=== PATIENT | male | born 1960 | race Caucasian/White ===

== ENCOUNTER → 2020-09-21 13:33 | Outpatient (BNVA) | payer OTHER, SELFPAY | PROVIDERS: PCP Nurse Practitioner; Referring Provider Nurse Practitioner; Visit Provider Specialist | DX: S52.91XA Unspecified fracture of right forearm, initial encounter for closed fracture (principal) | CPT/HCPCS: 73110 ==

== ENCOUNTER 2022-04-02 06:32 | Day surgery (SDC) | payer OTHER, SELFPAY ==
[2022-03-29 13:52] VITALS: BMI 24.7
[2022-04-02 06:51] VITALS: BP 128/74; PULSE 60; RESP 18; TEMP 36.4; O2SAT 99
[2022-04-02] MEDS: sodium chloride 0.9% 1,000 ML 30 ML IV (06:55)
--- NOTE | 2022-04-02 07:02 | ANES.PREANE2 ---
Pre-Anesthetic Assessment Height/Weight: Height 1.82 m Weight 81.647 kg Temp Pulse Resp BP Pulse Ox O2 Del Method 97.5 F L 60 18 128/74 99 04/02/22 06:51 04/02/22 06:51 04/02/22 06:51 04/02/22 06:51 04/02/22 06:51 04/02/22 06:51 Preop Diagnosis: Hematochezia Operation Date: 04/02/22 08:00 Proposed Procedures p Colonoscopy 31974,K92(Not Applicable) - Karthik Barth MD Familial anesthetic complications: none Was Beta Virginie taken within 24 hours: N/A Was Clonidine taken within 24 hours: N/A Last intake: Intake Last Liquid Date 04/02/22 Last Liquid Time 06:20 Last Solid Date 03/28/22 Last Solid Time 22:00 Last Intake: 06:30 Social Alcohol and Tobacco 1/2 pack(s) per day 30+ pack years Exam alert, oriented x 3, clear to auscultation bilaterally and regular rate & rhythm Airway Submandibular: within normal limits Cervical ROM: within normal limits Mallampati: Class I Dentition: full Pulmonary Chronic Obstructive Pulmonary Disease CV/HEM Stable Angina (last month had CP relieved by NTG. Seen PCP. ), Coronary Artery Disease (CABGx4 5 years. ) and Hypertension None reported Hepatic None reported GI None reported Metabolic None reported Musc/skel Lower Back Pain and Osteoarthritis/DJD Neuropsych None reported Anesthetic Plan ASA status: 3 Anesthesia: MAC Risk of > 500 ml blood loss (7ml/kg in children): No Medications/Allergies Home Medications Medication Instructions Recorded Confirmed Last Taken Type ascorbic acid (vitamin C) 500 mg 250 mg PO DAILY 06/14/20 03/29/22 04/01/22 History tablet cholecalciferol (vitamin D3) 50 50 mcg PO DAILY 06/14/20 03/29/22 04/01/22 History mcg (2,000 unit) capsule garlic 300 mg PO DAILY 06/14/20 03/29/22 04/01/22 History omega-3 fatty acids 1,000 mg 1,000 mg PO DAILY 06/14/20 03/29/22 04/01/22 History capsule (Fish Oil Concentrate) potassium 20 meq PO DAILY 03/29/22 03/29/22 04/01/22 History aspirin 81 mg chewable tablet 81 mg PO DAILY 04/02/22 04/02/22 04/01/22 History Allergies Allergy/AdvReac Type Severity Reaction Status Date / Time Udynqtl-YLD-DnD Reductase Allergy Unknown Verified 03/29/22 13:47 Inhibitor [Tfzgrpr-Gpt-Mbl Reductase Inhibitor] ibuprofen AdvReac Mild vomiting Verified 03/29/22 13:47 Current Medications Generic Name Dose Route Start Last Admin Trade Name Freq PRN Reason Stop Dose Admin Sodium Chloride 1,000 mls @ 30 mls/hr 04/02/22 06:45 04/02/22 06:55 Sodium Chloride 0.9% IV 30 mls/hr .Q24H YOSVANY Administration PFSH Anesthesia Medical History Coronary artery disease Hyperlipidemia Surgical History History of quadruple bypass Family History Mother CAD (coronary artery disease) Stroke Social History Smoking and tobacco status: former smoker Quit status (tobacco): has quit using tobacco Second hand smoke exposure: No Alcohol intake: current Desire information about alcohol rehabilitation?: No Counseling given: No Desire information about substance/drug rehabilitation?: No Counseling given: No Data Anesthesia Cardiac Studies: No Data to Display
--- NOTE | 2022-04-02 07:55 | W.PM.OPSFHP ---
Same Day Surgery H&P Indication for Procedure/HPI DATE OF PROCEDURE: April 02, 2022 CHIEF COMPLAINT/INDICATIONFOR SURGICAL PROCEDURE: Hematochezia PREOP DIAGNOSIS: Hematochezia PLANNED PROCEDURE: Operation Date: 04/02/22 08:00 Proposed Procedures p Colonoscopy 50034,K92(Not Applicable) - Karthik Barth MD Medications/Allergies* Home Medications Medication Instructions Recorded Confirmed Type ascorbic acid (vitamin C) 500 mg 250 mg PO DAILY 06/14/20 03/29/22 History tablet cholecalciferol (vitamin D3) 50 50 mcg PO DAILY 06/14/20 03/29/22 History mcg (2,000 unit) capsule garlic 300 mg PO DAILY 06/14/20 03/29/22 History omega-3 fatty acids 1,000 mg 1,000 mg PO DAILY 06/14/20 03/29/22 History capsule (Fish Oil Concentrate) potassium 20 meq PO DAILY 03/29/22 03/29/22 History aspirin 81 mg chewable tablet 81 mg PO DAILY 04/02/22 04/02/22 History Allergies/Adverse Reactions Allergy/AdvReac Type Severity Reaction Status Date / Time Fxxzxyj-FRR-DqJ Reductase Allergy Unknown Verified 03/29/22 13:47 Inhibitor [Nqravye-Pem-Kbu Reductase Inhibitor] ibuprofen AdvReac Mild vomiting Verified 03/29/22 13:47 Current Medications: Generic Name Dose Route Start Last Admin Trade Name Freq PRN Reason Stop Dose Admin Sodium Chloride 1,000 mls @ 30 mls/hr 04/02/22 06:45 04/02/22 06:55 Sodium Chloride 0.9% IV 30 mls/hr .Q24H YOSVANY Administration Pertinent History/Comorbid Conditions* Medical History (Updated 03/15/22 @ 11:24 by Karthik Barth MD) Coronary artery disease Hyperlipidemia Surgical History (Updated 06/17/20 @ 19:30 by Amandeep Mancuso M.D) History of quadruple bypass Family History (Updated 06/14/20 @ 12:35 by Nayana Cooper LPN) Mother CAD (coronary artery disease) Mother Stroke Mother Social History Smoking and tobacco status: former smoker Quit status (tobacco): has quit using tobacco Second hand smoke exposure: No Alcohol intake: current Desire information about alcohol rehabilitation?: No Counseling given: No Desire information about substance/drug rehabilitation?: No Counseling given: No Pertinent Exam Findings alert, oriented x 3, clear to auscultation bilaterally, regular rate & rhythm, operative site marked and procedure specific exam findings Recommendations Surgery/Procedure today Coding Level of Care Code Acute Light Bulb Replacer for Murray Wright
[2022-04-02 08:44] VITALS: BP 97/68; PULSE 58; RESP 16; TEMP 36.3; O2SAT 99
[2022-04-02 08:57] VITALS: BP 113/77; PULSE 52; RESP 16; O2SAT 99
--- NOTE | 2022-04-02 13:44 | ANE.PACU2 ---
Inpatient post-anesthesia follow up: Airway intact: Yes Vital signs: Temperature 97.4 F Pulse Rate 52 Respiratory Rate 16 Blood Pressure 113/77 Pulse Oximetry 99 Oxygen Delivery Me thod Room Air Oxygen Flow Rate 3 Fraction of Inspir ed Oxygen Hydration adequate: Yes Nausea and vomiting: No Pain level: 1 Mental status: Baseline
== END 2022-04-02 09:20 | disposition home or self-care (01) ==
PROVIDERS: PCP Nurse Practitioner; Visit Provider Internal Medicine
PROC: 0DJD8ZZ Inspection of Lower Intestinal Tract, Via Natural or Artificial Opening Endoscopic (ICD-10-PCS; CPT 45378; principal; 2022-04-02 08:00)
DX: K92.1 Melena (principal); K57.30 Diverticulosis of large intestine without perforation or abscess without bleeding; J44.9 Chronic obstructive pulmonary disease, unspecified; I25.110 Atherosclerotic heart disease of native coronary artery with unstable angina pectoris; Z95.1 Presence of aortocoronary bypass graft; I10 Essential (primary) hypertension; M19.90 Unspecified osteoarthritis, unspecified site; Z79.82 Long term (current) use of aspirin; I25.10 Atherosclerotic heart disease of native coronary artery without angina pectoris; E78.5 Hyperlipidemia, unspecified; Z82.49 Family history of ischemic heart disease and other diseases of the circulatory system; Z87.891 Personal history of nicotine dependence
CPT/HCPCS: 45378; J2704; J7030

== ENCOUNTER 2023-01-08 18:13 | Emergency (ER) | payer OTHER, SELFPAY ==
[2023-01-08 18:24] VITALS: BP 104/74; PULSE 57; TEMP 36.6; O2SAT 99; BMI 25.1
--- NOTE | 2023-01-08 18:31 | ECG_ITS ---
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 Measurements Intervals [place] Rate: 54 P: 46 DC: 166 QRS: 18 QRSD: 84 T: 44 QT: 419 QTc: 401 Interpretive Statements SINUS BRADYCARDIA No previous ECG available for comparison Electronically Signed On 01-08-2023 22:58:47 CDT by Amandeep Mancuso M.D. [id number]
--- NOTE | 2023-01-08 18:31 | XRR_ITS ---
PROCEDURE INFORMATION: Exam: XR Chest Exam date and time: 01/08/2023 6:35 PM Age: 62 years old Clinical indication: Pain; Chest pressure; Prior surgery; Surgery date: 6+ months; Surgery type: Bypass; Additional info: Chest pain TECHNIQUE: Imaging protocol: Radiologic exam of the chest. Views: 1 view. COMPARISON: No relevant prior studies available. FINDINGS: Lungs: Unremarkable. No consolidation. Pleural spaces: Unremarkable. No pleural effusion. No pneumothorax. Heart/Mediastinum: Unremarkable. No cardiomegaly. Bones/joints: Unremarkable. Other findings: There are post-sternotomy changes and postoperative changes overlying the mediastinum. XR/XR chest 1V portable [id number] IMPRESSION: No acute findings.
[2023-01-08 19:09] LABS: Basophils # 0.1 10^3/uL (0.0-0.1); Basophils % 1.1 %; Eosinophils # 0.8 10^3/uL (0.0-0.8); Eosinophils % 8.1 %; Hematocrit 37.6 % (42.0-52.0); Hemoglobin 12.8 g/dL (11.7-16.6); Lymphocytes # 4.2 10^3/uL (0.8-4.8); Lymphocytes % 40.4 %; Mean Corpuscular Hemoglobin 32.8 pg (28.0-34.0); Mean Corpuscular Volume 96.4 fl (80-94); Mean Platelet Volume 11.7 fL (7.4-10.4); Monocytes # 0.8 10^3/uL (0.2-0.9); Neutrophils % 42.1 %; Nucleated Red Blood Cells % 0 %; Platelet Count 295 10^3/cmm (130-400); Red Cell Distribution Width 12.6 % (12.1-15.1); White Blood Count 10.4 10^3/uL (4.0-10.0)
[2023-01-08 19:30] LABS: Troponin(5th) Baseline 6 ng/L (0-15)
[2023-01-08 19:33] LABS: Alanine Aminotransferase 13 U/L (0-41); Albumin Level 4.1 g/dL (3.5-5.2); Alkaline Phosphatase 62 U/L (40-130); Anion Gap 16.8 (5-19); Aspartate Amino Transferase 21 U/L (0-40); Blood Urea Nitrogen 12 mg/dL (8-23); Carbon Dioxide 23 mmol/L (22-29); Chloride 101 mmol/L (98-107); Globulin 2.6 g/dL (1.3-4.6); Glomerular Filtration Rate 98.3 mL/min (90-130); Glucose 118 mg/dL (65-115); Osmolality Calculated 285 mOsm/kg (285-295); Potassium 3.8 mmol/L (3.5-5.1); Sodium 137 mmol/L (136-145); Total Bilirubin 0.4 mg/dL (0.15-1.2); Total Protein 6.7 g/dL (6.6-8.7)
--- NOTE | 2023-01-08 19:37 | W.ED.CHESTPA ---
HPI - Chest Pain General: Chief Complaint: Chest Pain Stated Complaint: Chest Pain Time Seen by Provider: 01/08/23 18:31 History of Present Illness: Presents to the ER by EMS with complaints of epigastric/chest pain that is now resolved. Patient was sitting at home resting he had sudden onset chest pain. Patient took 2 nitro which helped the chest pain the patient called EMS. EMS gave the patient 324 mg aspirin prior to arrival. Patient has been chest pain-free since arrival to the ER. Patient does have a cardiac history with a CABG in the past. Patient is not on a statin due to intolerance. Review of Systems General: Reports: 10 or more systems reviewed and unremarkable except in HPI and below PFSH ED PFSH: Medical History Coronary artery disease Hyperlipidemia Surgical History History of quadruple bypass Family History Mother CAD (coronary artery disease) Stroke Social History Smoking and tobacco status: former smoker Quit status (tobacco): has quit using tobacco Second hand smoke exposure: No Alcohol intake: current Desire information about alcohol rehabilitation?: No Counseling given: No Substance/Drug Use: current Substance/Drug use frequency: few times a week Desire information about substance/drug rehabilitation?: No Counseling given: No Physical Exam Const: COMMON NORMALS: no acute distress, average body habitus, patient oriented x3, no limitations, healthy appearing, alert and well nourished HENMT: COMMON NORMALS: normocephalic, atraumatic, hearing grossly normal bilaterally, external ears normal, Normal external nose present and moist oral mucous membranes HEAD & SCALP: normocephalic and atraumatic NOSE: Normal external nose present EXTERNAL EAR: Yes external ears normal Neck/C-Spine: COMMON NORMALS: full ROM, no lymphadenopathy, supple, no meningeal signs, no JVD and Thyroid normal THYROID: Thyroid normal Chest: COMMONS NORMALS: normal inspection of the chest and normal palpation of entire chest wall Resp: COMMON NORMALS: normal respiratory effort, No retractions, No use of accessory muscles and clear to auscultation bilaterally AUSCULTATION: clear to auscultation bilaterally Cardio: COMMON NORMALS: no JVD, regular rate, regular rhythm, S1 normal heart sound present, S2 normal heart sound present, No gallops present (Cardio), No clicks present (Cardio) and No murmurs present (Cardio) RATE: regular rate RHYTHM: regular rhythm HEART SOUNDS: S1 normal heart sound present and S2 normal heart sound present GI: COMMON NORMALS: Normal to inspection, nondistended, normoactive bowel sounds present, Soft to palpation, non-tender, No hepatosplenomegaly present and no masses PALPATION: Yes Soft to palpation and Yes No hepatosplenomegaly present : COMMON NORMALS: Yes no CVA tenderness BLADDER/KIDNEY EXAM: Yes no CVA tenderness Back/Pelvis: COMMON NORMALS: no CVA tenderness Neuro: COMMON NORMALS: patient oriented x3 SENSORIUM/ORIENTATION: Yes alert MENINGEAL SIGNS: Yes no meningeal signs Course Vital Signs: Vital signs: Vital Signs Temperature 97.8 F 01/08/23 18:24 Pulse Rate 58 L 01/08/23 19:41 Respiratory Rate 13 01/08/23 19:41 Blood Pressure 87/61 01/08/23 19:41 Pulse Oximetry 97 01/08/23 19:41 Oxygen Delivery Me thod Room Air 01/08/23 18:24 MDM - Chest Pain Medical Decision Making Presents to the ER with resolved chest pain. Patient had a cardiac work-up that involved physical exam serial EKGs serial troponins and chest x-ray. All of which were essentially benign. Patient was chest pain-free the entire time of his stay. Patient was given 1 L normal saline in his IV. Patient is feeling fine and is ready to go home patient be discharged home to follow-up with his PCP. Differential Diagnosis Unlikely acute massive pulmonary embolism, acute respiratory failure, acute myocardial infarction, cardiac arrest or sudden cardiac Medical Records I reviewed the patient's medical records. Lab Data I reviewed the patient's lab results. 01/08/23 17:23 01/08/23 17:23 Radiology Impressions Chest X-Ray 01/08/23 18:31 IMPRESSION: No acute findings. Laboratory Results WBC 10.4 10^3/uL (4.0-10.0) H 01/08/23 17:23 RBC 3.90 10^6/uL (4.1-5.3) L 01/08/23 17:23 Hgb 12.8 g/dL (11.7-16.6) 01/08/23 17: Hct 37.6 % (42.0-52.0) L 01/08/23 17: MCV 96.4 fl (80-94) H 01/08/23 17: MCH 32.8 pg (28.0-34.0) 01/08/23 17: MCHC 34.0 g/dL (30.0-36.0) 01/08/23 17: RDW 12.6 % (12.1-15.1) 01/08/23 17: Plt Count 295 10^3/cmm (130-400) 01/08/23 17: MPV 11.7 fL (7.4-10.4) H 01/08/23 17: Neut % (Auto) 42.1 % 01/08/23 17: Lymph % (Auto) 40.4 % 01/08/23 17: [place] % (Auto) 8.0 % 01/08/23 17: Eos % (Auto) 8.1 % 01/08/23 17: Baso % (Auto) 1.1 % 01/08/23 17: Neut # (Auto) 4.40 10^3/uL (1.8-7.7) 01/08/23: Lymph # (Auto) 4.2 10^3/uL (0.8-4.8) 01/08/23 17: [place] # (Auto) 0.8 10^3/uL (0.2-0.9) 01/08/23 17: Eos # (Auto) 0.8 10^3/uL (0.0-0.8) 01/08/23 17: Baso # (Auto) 0.1 10^3/uL (0.0-0.1) 01/08/23: Nucleated RBC % (auto) 0 % 01/08/23: Nucleated RBCs # 0.0 /100WBC 01/08/23 17:23 Sodium 137 mmol/L (136-145) 01/08/23 17: Potassium 3.8 mmol/L (3.5-5.1) 08/08/23 17:23 Chloride 101 mmol/L (98-107) 01/08/23 17:23 Carbon Dioxide 23 mmol/L (22-29) 01/08/23 17:23 Anion Gap 16.8 (5-19) 01/08/23 17:23 BUN 12 mg/dL (8-23) 01/08/23 17:23 Creatinine 0.8 mg/dL (0.7-1.2) 01/08/23 17:23 GFR Calculation 98.3 mL/min (90-130) 01/08/23 17:23 Glucose 118 mg/dL (65-115) H 01/08/23 17:23 Calculated Osmolality 285 mOsm/kg (285-295) 01/08/23 17: Calcium 9.0 mg/dL (8.5-10.5) 01/08/23 17:23 Total Bilirubin 0.4 mg/dL (0.15-1.2) 01/08/23 17:23 AST 21 U/L (0-40) 01/08/23 17:23 ALT 13 U/L (0-41) 01/08/23 17:23 Alkaline Phosphatase 62 U/L (40-130) 01/08/23 17:23 Troponin T Baseline 6 ng/L (0-15) 01/08/23 17:23 Troponin T 120 Minute 8.76 ng/L (0-15) 01/08/23 19:26 Delta Troponin T 2.76 ABS# (0-10) 01/08/23 19:26 Total Protein 6.7 g/dL (6.6-8.7) 01/08/23 17:23 Albumin 4.1 g/dL (3.5-5.2) 01/08/23 17:23 Globulin 2.6 g/dL (1.3-4.6) 01/08/23 17:23 Urine Color Yellow (Yellow) 01/08/23 19:37 Urine Appearance Clear (CLEAR) 01/08/23 19:37 Urine pH 6.5 (5-7) 01/08/23 19:37 Ur Specific [place] 1.015 (1.005-1.030) 01/08/23 19:37 Urine Protein Neg (Negative) 01/08/23 19:37 Urine Glucose (UA) Trace (Normal) H 01/08/23 19:37 Urine Ketones 1+ (Negative) H 01/08/23 19:37 Urine Blood Neg (Negative) 01/08/23 19:37 Urine Nitrate Negative (Negative) 01/08/23 19:37 Urine Bilirubin Neg (Negative) 01/08/23 19:37 Urine Urobilinogen Norm mg/dL (Negative) 01/08/23 19:37 Ur Leukocyte Esterase Negative (Negative) 01/08/23 19:37 Urine RBC 0-4 /hpf (0-2) H 01/08/23 19:37 Urine WBC 0-4 /hpf (0-5) H 01/08/23 19:37 Ur Squamous Epith Cells 0-4 /hpf (0-5) H 01/08/23 19:37 Amorphous Sediment 1+ /hpf 01/08/23 19:37 Urine Bacteria None /hpf (NONE) 01/08/23 19:37 Urine Mucus 4+ /hpf 01/08/23 19:37 EKG Data EKG 1: I personally reviewed and interpreted this EKG as follows: EKG interpretation date: 01/08/23 EKG interpretation time: 18:27 Prior EKG tracings: not available for review Interpretation: EKG showed sinus bradycardia 54 bpm, VA 166, QRS 84, QTc of 4 1, no ST-T wave changes EKG 2: I personally reviewed and interpreted this EKG as follows: EKG interpretation date: 01/08/23 EKG interpretation time: 19:53 Prior EKG tracings: available for review Interpretation: EKG shows sinus bradycardia with a ventricular rate 57 beats minute, VA interval 173, QRS duration 89, QTc of 421, no ST-T wave changes Discharge Plan Discharge Patient Disposition: Home Clinical Impression: Atypical chest pain Condition: Stable Prescriptions: No Action cholecalciferol (vitamin D3) 50 mcg (2,000 unit) capsule 50 mcg PO DAILY ascorbic acid (vitamin C) 500 mg tablet 250 mg PO DAILY omega-3 fatty acids [Fish Oil Concentrate] 1,000 mg capsule 1,000 mg PO DAILY garlic Tablet 300 mg PO DAILY potassium 20 meq PO DAILY aspirin 81 mg Tablet,Chewable 81 mg PO DAILY Discharge Orders: Discharge ED (Routine); Ordered 01/08/23 Ordered By: Rickie Dugan Referrals: Brissa Gaines FNP [Primary Care Provider] - 1 week Patient Instructions: Chest Pain - Noncardiac Activity Restrictions/Additional Instructions: Please follow-up with your family physician in the next 7 to 10 days or sooner as needed. If your chest pain worsens or returns please feel free to return to the ER for further evaluation. Coding Level of Care Code ED Doping Supervisor for Murray Wright
[2023-01-08 19:41] VITALS: BP 87/61; PULSE 58; RESP 13; O2SAT 97
[2023-01-08] MEDS: sodium chloride 0.9% 1,000 ML 999 ML IV (19:50)
[2023-01-08 20:05] LABS: Troponin 5 2HR 8.76 ng/L (0-15); Troponin 5 2HR Delta 2.76 ABS# (0-10)
[2023-01-08 20:11] LABS: Add Urine Microscopic? YES; Bilirubin Urine Neg (Negative); Blood Urine Neg (Negative); Glucose Urine UA Trace (Normal); Ketones Urine 1+ (Negative); Leukocyte Esterase Urine Negative (Negative); Nitrate Urine Negative (Negative); Protein Urine Neg (Negative); Specific Gravity, Urine 1.015 (1.005-1.030); Urine Appearance Clear (CLEAR); Urine Color Yellow (Yellow); Urobilinogen Urine Norm (Negative); pH Urine 6.5 (5-7)
[2023-01-08 20:12] LABS: Add Urine Culture? No; Amorphous Sediment Urine 1+ /hpf; Mucus Urine 4+ /hpf; RBC Urine 0-4 /hpf (0-2); Squamous Epithelial Cell Urine 0-4 /hpf (0-5); WBC Urine 0-4 /hpf (0-5)
--- NOTE | 2023-01-08 20:31 | ECG_ITS ---
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 Measurements Intervals [place] Rate: 57 P: 45 [place]: 173 QRS: 18 QRSD: 89 T: 45 QT: 427 QTc: 417 Interpretive Statements SINUS BRADYCARDIA Compared to ECG 01/08/2023 18:27:11 No significant changes Electronically Signed On 01-08-2023 22:59:23 CDT by Amandeep Mancuso M.D. [id number]
[2023-01-08 21:00] VITALS: BP 98/64; PULSE 53; RESP 19; O2SAT 96
== END 2023-01-08 21:19 | disposition home or self-care (01) ==
PROVIDERS: Emergency Provider Emergency Medicine; PCP Nurse Practitioner
DX: R07.89 Other chest pain (principal); E78.5 Hyperlipidemia, unspecified; I25.10 Atherosclerotic heart disease of native coronary artery without angina pectoris; Z79.899 Other long term (current) drug therapy; Z79.82 Long term (current) use of aspirin; Z87.891 Personal history of nicotine dependence; Z95.1 Presence of aortocoronary bypass graft
CPT/HCPCS: 36415; 71045; 80053; 81001; 84484; 85025; 93005; 99285; J7030

== ENCOUNTER → 2023-04-15 12:14 | Outpatient (BNVA) | payer OTHER, SELFPAY | PROVIDERS: PCP Nurse Practitioner; Visit Provider Internal Medicine Cardiovascular Disease | DX: I25.10 Atherosclerotic heart disease of native coronary artery without angina pectoris (principal); Z95.1 Presence of aortocoronary bypass graft; E78.5 Hyperlipidemia, unspecified; Z78.9 Other specified health status; Z87.891 Personal history of nicotine dependence | CPT/HCPCS: 99213 ==

== ENCOUNTER → 2023-10-15 10:05 | Outpatient (BNVA) | payer OTHER, SELFPAY | PROVIDERS: PCP Nurse Practitioner; Visit Provider Nurse Practitioner Family | DX: I25.10 Atherosclerotic heart disease of native coronary artery without angina pectoris (principal); E78.2 Mixed hyperlipidemia; F17.200 Nicotine dependence, unspecified, uncomplicated | CPT/HCPCS: 99214 ==